=== PATIENT | female | born 1970 | race Caucasian/White ===

== ENCOUNTER 2017-01-26 20:31 | Emergency (ER) | payer MEDICAID ==
--- NOTE | 2017-01-26 21:23 | ED Physician Chart ---
Chief Complaint/HPI - Patient Information Date Seen:: 01/26/17 Time Seen:: 21:17 Chief Complaint:: l knee pain History of Present Illness:: l knee hurts since pt thinks she had a brief l knee patellar sublux 2 nts ago while in bed. she felt kneecap was laterally displaced but then seemed to jump back in place. has been sore since and felt edema just above knee and slt dec rom. no other trauma. pt had a patellar sublux 8yrs ago that was reduced in ED no fever, no cp, no sob, no lower leg edema or pain. no leg numbness or weakness. > pt has used motrin for this pain w slt relief but not recently. pain is currently tolerable Allergies:: Allergies Allergy/AdvReac Type Severity Reaction Status Date / Time morphine Allergy Verified 01/26/17 21:01 Penicillins [PCN] Allergy Verified 01/26/17 21:01 Vitals:: Vital Signs - 8 hr 01/26/17 21:00 Temp 98.1 F HR 93 RR 17 BP 146/91 O2 Sat % 98 Historian:: Patient Review of Systems - Review of Systems General/Constitutional: No fever, No chills, No weight loss, No weakness, No diaphoresis, No edema, No loss of appetite Skin: No skin lesions, No rash, No bruising Head: No headache, No light-headedness Eyes: No loss of vision, No pain, No diplopia ENT: No earache, No nasal drainage, No sore throat, No tinnitus Neck: No neck pain, No swelling, No thyromegaly, No stiffness, No mass noted Cardio Vascular: No chest pain, No palpitations, No PND, No orthopnea, No edema Pulmonary: No SOB, No cough, No sputum, No wheezing GI: No nausea, No vomiting, No diarrhea, No pain, No melena, No hematochezia, No constipation, No hematemesis G/U: No dysuria, No frequency, No hematuria Musculoskeletal: Bone or joint pain, No back pain, No muscle pain Endocrine: No polyuria, No polydipsia Psychiatric: No prior psych history, No depression, No anxiety, No suicidal ideation Hematopoietic: No bruising, No lymphadenopathy Allergic/Immuno: No urticaria, No angioedema Neurological: No syncope, No focal symptoms, No weakness, No paresthesia, No headache, No seizure, No dizziness, No confusion, No vertigo Past Medical History - Past Medical History Past Medical History: No significant medical hx, Other (l knee patellar sublux 8ya) Social History: Non Smoker, No Alcohol Medication: Reviewed Family Medical History - Family Member Mother History Unknown: Yes Physical Exam - Physical Examination General/Constitutional: Awake, Well-developed, well-nourished, Alert, No distress, GCS 15, Non-toxic appearing, Ambulatory Other Gen/Cons comments:: mod obese. alert, nontoxic. wn/wh. l knee has ant tndrness. no erythema. ok rom (perhaps sltly limited by pain), no effusion. patella appears in correct placement. lower leg has no edema nor tndrness, no marietta sx. 2+ pulses in ankles/feet. sensation/str ok Head: Atraumatic Eyes: Lids, conjuctiva normal, PERRL, EOMI Skin: Nl inspection, No rash, No skin lesions, No ecchymosis, Well hydrated, No lymphadenopathy ENMT: External ears, nose nl, Nasal exam nl, Lips, teeth, gums nl Neck: Nontender, Full ROM w/o pain, No JVD, No nuchal rigidity, No bruit, No mass, No stridor Respiratory: Nl effort/Exclusion, Clear to Auscultation, No Wheeze/Rhonchi/Rales Cardio Vascular: RRR, No murmur, gallop, rubs, NL S1 S2 GI: No tenderness/rebounding/guarding, No organomegaly, No hernia, Normal BS's, Nondistended, No mass/bruits, No McBurney tenderness : No CVA tenderness Extremities: No tenderness or effusion, Full ROM, normal strength in all extremities, No edema, Normal digits & nails Neuro/Psych: Alert/oriented, DTR's symmetric, Normal sensory exam, Normal motor strength, Judgement/insight normal, Mood normal, Normal gait, No focal deficits Misc: normal gait, Normal back, No paraspinal tenderness Labs/Radiology/EKG Results - Radiology Results Results: l knee no fx, no dislocation. ED Septic Shock - . Is Septic Shock (SBP<90, OR Lactate>4 mmol\L) present?: No - <6hrs of presentation: Vital Signs: Vital Signs - 8 hr 01/26/17 21:00 Temp 98.1 F HR 93 RR 17 BP 146/91 O2 Sat % 98 Reassessment (Disposition) - Reassessment Reassessment:: use knee imobilizer and crutches. nsaid for pain. return if worse. see pmd this week for rechk. Reassessment Condition:: Improved - Diagnosis Diagnosis:: L knee pain possible strain s/p patellar dislocation w spontaneous reduction ( by history) - Aftercare/Follow up Instructions Aftercare/Follow-Up Instructions:: Counseled pt & family regarding lab results/ diagnosis & need follow up - Patient Disposition Discharge/Transfer:: Home Condition at Disposition:: Improved
--- NOTE | 2017-01-27 10:00 | Diagnostic Imaging Report ---
Left knee 3 views Indication: Pain, history of patellar subluxation Comparison: none Findings: The frontal view is limited due to positioning. Mild degenerative changes are noted. No evidence of an acute fracture or dislocation. Small knee effusion is noted. The patella appears midline on the frontal views. No significant focal soft tissue swelling. Impression: No evidence of an acute fracture.. Small knee effusion. The patella appears midline. Please correlate with clinical findings. Mild degenerative changes In the setting of trauma, if clinical symptoms persist and there is continued concern for an occult fracture, follow up exams in 5-7 days is suggested.
== END 2017-01-26 23:00 | disposition home or self-care (01) ==
LOC: ER 20:31
DX: M25.562 Pain in left knee (principal); Z88.6 Allergy status to analgesic agent; Z88.0 Allergy status to penicillin
CPT/HCPCS: 29505; 73562-TC-LT; Z7502